=== PATIENT | female | born 1990 | race Caucasian/White ===

== ENCOUNTER 2016-09-21 22:38 | Emergency (ER) | payer MEDICAID ==
[~2016-09-21] VITALS: Ht 30.5 cm; Wt 113.7 kg
[~2016-09-21 22:38] MED LIST: AMOX875 PO
[2016-09-21 22:47] VITALS: BP 132/73; PULSE 66; RESP 16; TEMP 98.8; O2SAT 97
--- NOTE | 2016-09-21 23:13 | PD ---
HPI Chief Complaint: Pain: Acute or Chronic Time Seen by Provider: 22:48 Travel History International Travel<30 days: No Contact w/Intl Traveler<30days: No Traveled to known affect area: No History of Present Illness HPI The 26 year-old woman, 10 days out from her for , complaining of increased lower abdominal pain, frequent urination, bruising to her abdomen. She states she has more pain than she had with her previous C-sections. She describes foul smelling discharge from the wound. No obvious dehiscence. No fevers or chills. No other complaints. History Past Medical History Medical History: Denies Significant Hx Menopausal: No : 4 Para: 4 Social History Alcohol Use: No Tobacco Use: No (quit 2 years ago) Allergies-Medications (Allergen,Severity, Reaction): Coded Allergies: No Known Allergies (Verified , 08/14/13) Reported Meds & Prescriptions Reported Meds & Active Scripts Active Amoxil (Amoxicillin) 875 Mg Tab 875 Mg PO BID 10 Days Review of Systems Except as stated in HPI: all other systems reviewed are Neg Physical Exam Narrative GENERAL: Well-appearing 26-year-old woman, no acute distress. SKIN: Warm and dry. CARDIOVASCULAR: Regular rate and rhythm. No murmur appreciated. RESPIRATORY: No accessory muscle use. Clear to auscultation. Breath sounds equal bilaterally. GASTROINTESTINAL: Abdomen is obese and soft. There is ecchymosis in the left abdominal wall. This incision is well approximated. Don't see any erythema redness. There is moderate diffuse tenderness. There is no drainage that I can see. On the left side of the abdominal wall there is a little bit of induration and what may be a discrete area of induration or mass in the abdominal wall. There is moderate diffuse tenderness, worse on the left. No peritonitis. MUSCULOSKELETAL: No obvious deformities. No edema. NEUROLOGICAL: Awake and alert. No obvious cranial nerve deficits. Motor grossly within normal limits. Normal speech. Data Data Last Documented VS Vital Signs Date Time Temp Pulse Resp B/P Pulse Ox O2 Delivery O2 Flow Rate FiO2 09/21/16 22:47 98.8 66 16 132/73 97 Orders Complete Blood Count With Diff (09/21/16 22:58) Comprehensive Metabolic Panel (09/21/16 22:58) Urinalysis - C+S If Indicated (09/21/16 22:58) Iv Access Insert/Monitor (09/21/16 22:58) Urine Culture (09/21/16 23:15) Ct Abd/Pel W/O Iv Contrast (09/22/16 ) Labs Laboratory Tests Test 09/21/16 23:15 White Blood Count 11.6 TH/MM3 Red Blood Count 4.14 MIL/MM3 Hemoglobin 10.6 GM/DL Hematocrit 32.3 % Mean Corpuscular Volume 78.1 FL Mean Corpuscular Hemoglobin 25.6 PG Mean Corpuscular Hemoglobin 32.8 % Concent Red Cell Distribution Width 13.7 % Platelet Count 468 TH/MM3 Mean Platelet Volume 8.3 FL Neutrophils (%) (Auto) 62.3 % Lymphocytes (%) (Auto) 27.5 % Monocytes (%) (Auto) 6.3 % Eosinophils (%) (Auto) 3.4 % Basophils (%) (Auto) 0.5 % Neutrophils # (Auto) 7.2 TH/MM3 Lymphocytes # (Auto) 3.2 TH/MM3 Monocytes # (Auto) 0.7 TH/MM3 Eosinophils # (Auto) 0.4 TH/MM3 Basophils # (Auto) 0.1 TH/MM3 CBC Comment DIFF FINAL Differential Comment Urine Collection Type CLEAN CATCH Urine Color STRAW Urine Turbidity CLEAR Urine pH 6.0 Urine Specific [place] 1.005 Urine Protein NEG mg/dL Urine Glucose (UA) NEG mg/dL Urine Ketones NEG mg/dL Urine Occult Blood TRACE Urine Nitrite NEG Urine Bilirubin NEG Urine Leukocyte Esterase TRACE Urine WBC 3-5 /hpf Urine WBC Clumps OCC Urine Squamous Epithelial 0-3 /hpf Cells Urine Transitional Epithelial 0-5 /hpf Cells Urine Bacteria OCC /hpf Microscopic Urinalysis Comment CULTURE INDICATED Sodium Level 144 MEQ/L Potassium Level 4.1 MEQ/L Chloride Level 111 MEQ/L Carbon Dioxide Level 22.7 MEQ/L Anion Gap 10 MEQ/L Blood Urea Nitrogen 30 MG/DL Creatinine 2.40 MG/DL Estimat Glomerular Filtration 24 ML/MIN Rate Random Glucose 96 MG/DL Calcium Level 8.6 MG/DL Total Bilirubin 0.2 MG/DL Aspartate Amino Transf 11 U/L (AST/SGOT) Alanine Aminotransferase 22 U/L (ALT/SGPT) Alkaline Phosphatase 173 U/L Total Protein 7.4 GM/DL Albumin 3.0 GM/DL MDM Medical Decision Making Medical Screen Exam Complete: Yes Emergency Medical Condition: Yes Interpretation(s) LABS: CBC remarkable for mild leukocytosis, mild anemia CMP remarkable for abnormal BUN and creatinine UA is unremarkable CT negative Differential Diagnosis Seroma, hematoma, infection, other Narrative Course Medical decision making INITIAL: Is a 26-year-old woman who presents to the emergency department complaining of pain in her abdomen following her , with some bowel swelling malodorous drainage. The incision itself looks really pretty unremarkable. She's describing foul-smelling drainage only see any now. I don' t see any areas where there is really any dehiscence. She looks otherwise well. We'll check labs. Don't think she CT imaging she is not improving or develops other infectious symptoms such as fevers or chills. We'll place her on antibiotics for mild wound infection. We'll also check urine given her polyuria for possible UTI. Outpatient follow-up with OB. FINAL: Kidney tests are abnormal. Etiology is unclear. He did a CT scan of for any evidence of obstruction. There was unremarkable. She is on a lot of NSAIDs recently for pain. Instructed to stop that. She'll need follow-up. Diagnosis Primary Impression: Abdominal pain Qualified Code: R10.84 - Generalized abdominal pain Additional Impression: Kidney disease Additional Instructions: Use Lortab as needed for pain. Do not take any NSAIDs such as ibuprofen, Aleve, aspirin, or similar medicines. Follow-up with your hematology technician in the next 2-3 days. You need follow-up regarding your abnormal kidney blood test. Return to the emergency department for any new or worsening symptoms. Med/Other Pt SpecificInfo: Prescription(s) given Scripts Hydrocodone-Acetaminophen (Lortab)5-325 Mg Tab1-2 Tab PO Q6H PRN (PAIN) #20 TAB Prov:Avelino Tatum MD 09/22/16 Disposition: 01 DISCHARGE HOME Condition: Stable Avelino Tatum MD Sep 21, 2016 23:13
[2016-09-21 23:30] LABS: BLOOD, URINE TRACE (NEG); GLUCOSE,URINE NEG (NEG); KETONE, URINE NEG (NEG); NITRITE,URINE NEG (NEG)
[2016-09-21 23:33] LABS: AUTOMATED NEUTROPHIL # 7.2 TH/MM3 (1.8-7.7); BASOPHIL # 0.1 TH/MM3 (0-0.2); BASOPHIL % 0.5 % (0.0-2.0); EOSINOPHIL # 0.4 TH/MM3 (0-0.4); EOSINOPHIL % 3.4 % (0.0-4.0); HEMATOCRIT 32.3 % (35.0-46.0); HEMO FLAGS DIFF FINAL; LYMPH % 27.5 % (9.0-44.0); LYMPHOCYTE # 3.2 TH/MM3 (1.0-4.8); MEAN CELL VOLUME 78.1 FL (80.0-100.0); MEAN CORPUSCULAR HEMOGLOBIN 25.6 PG (27.0-34.0); MEAN CORPUSCULAR HGB CONC 32.8 % (32.0-36.0); MONO % 6.3 % (0.0-8.0); NEUT % 62.3 % (16.0-70.0); PLATELET COUNT 468 TH/MM3 (150-450); RED BLOOD COUNT 4.14 MIL/MM3 (4.00-5.30); RED CELL DISTRIBUTION WIDTH 13.7 % (11.6-17.2); WHITE BLOOD COUNT 11.6 TH/MM3 (4.0-11.0)
[2016-09-21 23:42] LABS: CHLORIDE 111 MEQ/L (98-107); METHOD OF COLLECTION CLEAN CATCH; POTASSIUM 4.1 MEQ/L (3.5-5.1); SODIUM (NA) 144 MEQ/L (136-145); URINE COLOR STRAW (YELLW/STRAW)
[2016-09-21 23:44] LABS: BACTERIA, URINE OCC /hpf; SQUAMOUS EPITHELIAL CELL URINE 0-3 /hpf (0-5)
[2016-09-21 23:45] LABS: COMMENT (UR) CULTURE INDICATED; CULTURE IF INDICATED CULTURE INDICATED; TRANSITIONAL EPI CELLS, URINE 0-5 /hpf
[2016-09-21 23:46] LABS: ANION GAP 10 MEQ/L (5-15); BICARBONATE 22.7 MEQ/L (21.0-32.0); BLOOD UREA NITROGEN 30 MG/DL (7-18)
[2016-09-21 23:49] LABS: ALT (GPT) 22 U/L (10-53); AST (GOT) 11 U/L (15-37); GLOMERULAR FILTRATION RATE 24 ML/MIN (>89)
[2016-09-21 23:50] LABS: TOTAL BILIRUBIN ADULT 0.2 MG/DL (0.2-1.0)
[2016-09-21 23:52] LABS: ALKALINE PHOSPHATASE 173 U/L (45-117)
--- NOTE | 2016-09-22 01:09 | RADHPO ---
EXAM DATE/TIME: 09/22/2016 00:20 [facility] COMPARISON: No previous studies available for comparison. INDICATIONS : Lower abdominal pain following section. ORAL CONTRAST: No oral contrast ingested. RADIATION DOSE: 25.43 CTDIvol (mGy) MEDICAL HISTORY : None SURGICAL HISTORY : section. ENCOUNTER: Initial ACUITY: 2 weeks PAIN SCALE: 8/10 LOCATION: Bilateral lower quadrant TECHNIQUE: Volumetric scanning of the abdomen and pelvis was performed. Using automated exposure control and ad justment of the mA and/or kV according to patient size, radiation dose was kept as low as reasonably achievable to obtain optimal diagnostic quality images. FINDINGS: LOWER LUNGS: The visualized lower lungs are clear. LIVER: Homogeneous density without lesion. There is no dilation of the biliary tree. No calcified gallston es. SPLEEN: Normal size without lesion. PANCREAS: Within normal limits. KIDNEYS: Normal in size and shape. There is no mass, stone, or hydronephrosis. ADRENAL GLANDS: Within normal limits. VASCULAR: There is no aortic aneurysm. BOWEL/MESENTERY: The stomach, small bowel, and colon demonstrate no acute abnormality. There is no free intraperitone al air or fluid. ABDOMINAL WALL: Within normal limits. RETROPERITONEUM: There is no lymphadenopathy. BLADDER: No wall thickening or mass. REPRODUCTIVE: The uterus is prominent, characteristic of . No hyperdensities within the uterus, no free fluid, and no adnexal masses. INGUINAL: There is no lymphadenopathy or hernia. MUSCULOSKELETAL: Within normal limits for patient age. CONCLUSION: Negative noncontrast CT abdomen/pelvis. uterus. Aston Pope MD on September 22, 2016 at 1:05 Board Certified Radiologist. This report was verified electronically.
[2016-09-22] MEDS ORDERED: HYDR-3533 PO ×2 (02:35→02:37)
[2016-09-22] MEDS ORDERED: MORPHINE SULFATE 4 MG/ML INJ IV PUSH ONE (02:45)
[2016-09-22 03:17] VITALS: BP 126/72; PULSE 66; RESP 16; O2SAT 99
[2016-09-22] MEDS ORDERED: CEPH-460 PO (03:33)
[2016-09-22 03:40] VITALS: RESP 16
== END 2016-09-22 03:40 | disposition home or self-care (01) ==
LOC: PHED 22:38
DX: R10.84 Generalized abdominal pain (principal); N28.9 Disorder of kidney and ureter, unspecified; R35.0 Frequency of micturition; R82.90 Unspecified abnormal findings in urine; Z87.891 Personal history of nicotine dependence
CPT/HCPCS: 74176; 80053; 81001; 85025; 87086; 96374; 99283; J2270

== ENCOUNTER 2016-12-06 22:28 | Emergency (ER) | payer OTHER, MEDICAID ==
[~2016-12-06] VITALS: Ht 154.9 cm; Wt 113.0 kg
[~2016-12-06 22:28] MED LIST changes: +CEPH-460 PO; +HYDR-3533 PO
[2016-12-06 22:38] VITALS: BP 112/79; PULSE 97; RESP 18; TEMP 97.8; O2SAT 100
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
[2016-12-07] MEDS ORDERED: METHOCARBAMOL 500 MG TAB PO ONE (01:30)
[2016-12-07] MEDS ORDERED: ROBA750T PO (01:31)
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
== END 2016-12-07 01:51 | disposition home or self-care (01) ==
LOC: PHEFT 22:28
DX: S39.012A Strain of muscle, fascia and tendon of lower back, initial encounter (principal); M25.551 Pain in right hip; V43.63XA Car passenger injured in collision with pick-up truck in traffic accident, initial encounter
CPT/HCPCS: 72100; 73552; 84703; 99284

== ENCOUNTER 2017-02-24 23:03 | Emergency (ER) | payer MEDICAID, OTHER ==
[~2017-02-24] VITALS: Ht 154.9 cm; Wt 113.1 kg
[~2017-02-24 23:03] MED LIST changes: -AMOX875 PO; -CEPH-460 PO; -HYDR-3533 PO; +ROBA750T PO
[2017-02-24 23:10] VITALS: BP 128/72; PULSE 82; RESP 18; TEMP 97.8; O2SAT 99
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
[2017-02-25] MEDS ORDERED: CYCL1TAB29 PO (00:02)
[2017-02-25] MEDS ORDERED: IBUP-232 PO (00:02)
--- NOTE | 2017-02-25 00:22 | RADRPT ---
EXAM DATE/TIME: 02/24/2017 23:46 [facility] COMPARISON: No previous studies available for comparison. INDICATIONS : Right knee pain. MEDICAL HISTORY : None. SURGICAL HISTORY : None. ENCOUNTER: Initial ACUITY: 2 days PAIN SCORE: 3/10 LOCATION: Right knee. FINDINGS: Four view examination of the right knee demonstrates no evidence of fracture or dislocation. Bony mi neralization is normal. The articular surfaces are intact. The suprapatellar soft tissues have a no rmal configuration. CONCLUSION: Negative exam. Aston Pope MD on February 25, 2017 at 0:20 Board Certified Radiologist. This report was verified electronically.
--- NOTE | 2017-02-25 00:23 | RADRPT ---
EXAM DATE/TIME: 02/24/2017 23:57 [facility] COMPARISON: No previous studies available for comparison. INDICATIONS : Left ankle pain. MEDICAL HISTORY : None. SURGICAL HISTORY : None. ENCOUNTER: Initial ACUITY: 2 days PAIN SCORE: 3/10 LOCATION: Left ankle. FINDINGS: Three view exam was performed of the left ankle. The bony structures are in normal alignment. No ev idence of fracture, dislocation, or soft tissue swelling. The ankle mortise is intact. No radiopaqu e foreign bodies are seen. Bony mineralization is normal. CONCLUSION: Negative exam. Aston Pope MD on February 25, 2017 at 0:21 Board Certified Radiologist. This report was verified electronically.
--- NOTE | 2017-02-25 00:23 | RADRPT ---
EXAM DATE/TIME: 02/25/2017 00:00 [facility] COMPARISON: No previous studies available for comparison. INDICATIONS : Right heel pain. MEDICAL HISTORY : None. SURGICAL HISTORY : None. ENCOUNTER: Initial ACUITY: 2 days PAIN SCORE: 4/10 LOCATION: Right heel. FINDINGS: Two view examination of the right heel demonstrates the trabecula to be intact with no evidence of fr acture. There is a normal calcaneal angle. The soft tissues are of normal thickness. CONCLUSION: No fracture seen. Aston Pope MD on February 25, 2017 at 0:21 Board Certified Radiologist. This report was verified electronically.
[2017-02-25] MEDS ORDERED: KETOROLAC TROMETHAMINE 60 MG/2 ML (IM) VIAL IM ONE (00:30)
[2017-02-25] MEDS ORDERED: ORPHENADRINE INJ 60 MG/2 ML AMP IM ONE (00:30)
== END 2017-02-25 00:49 | disposition home or self-care (01) ==
LOC: PHED 23:03
DX: S93.402A Sprain of unspecified ligament of left ankle, initial encounter (principal); S90.31XA Contusion of right foot, initial encounter; S76.111A Strain of right quadriceps muscle, fascia and tendon, initial encounter; S39.012D Strain of muscle, fascia and tendon of lower back, subsequent encounter; W18.40XA Slipping, tripping and stumbling without falling, unspecified, initial encounter; Y92.512 Supermarket, store or market as the place of occurrence of the external cause; V89.2XXD Person injured in unspecified motor-vehicle accident, traffic, subsequent encounter
CPT/HCPCS: 73564; 73610; 73650; 96372; 99284; J1885; J2360